=== PATIENT | female | born 1980 | race Caucasian/White ===

== ENCOUNTER → 2016-11-13 | Outpatient (CLI) | payer BC ==
[~2016-11-13] MED LIST: CYM30 PO; DSY/150 PO; GADAVIST IV PRN; KLN5X PO; LMC25 PO; PREN1TAB26 PO; SNG10 PO
--- NOTE | 2016-11-13 14:02 | DIAGNOSTIC IMAGING REPORT ---
MRI OF THE CHEST WITH AND WITHOUT CONTRAST CLINICAL HISTORY: Lung Mass. Thoracic outlet surgery. COMPARISON STUDY: Chest CT October 20, 2016. TECHNIQUE: Utilizing a 1.5 Cathi magnet and dedicated coil, multiplanar, multiecho imaging of the chest with specific attention to the lung apices was performed pre and postcontrast ministration. Injection of 9 cc of Gadavist IV was uneventful. Postcontrast imaging was performed utilizing dynamic enhancement. FINDINGS: No thoracic mass is identified. There are findings consistent with partial resection of the right first rib as shown on CT of October 20, 2016. Fat protrudes into the chest wall defect. This is postsurgical and within normal limits. No abnormal enhancement is identified. No pleural effusion is present. Visualized portions of the upper abdomen are unremarkable. No areas of suspicious marrow replacement are present. There is no axillary or supraclavicular lymphadenopathy. IMPRESSION: No thoracic mass. Postoperative findings consistent with right first rib resection as shown on CT of October 20, 2016. Fat protrudes into the surgical bed which represents an expected post surgical finding. No enhancement to suggest tumor. Electronically signed by: Angelito Jacob M.D. 11/13/2016 2:00 PM Dictated Date/Time: 11/13/2016 1:14 PM
== END | disposition home or self-care (01) ==
LOC: C.MRI 10:38
PROVIDERS: ATTEND Surgery
DX: R91.8 Other nonspecific abnormal finding of lung field (principal)